=== PATIENT | male | born 1980 ===

== ENCOUNTER 2019-03-14 22:45 | Emergency (ER) | payer OTHER, SELFPAY ==
[2019-03-14 22:55] VITALS: BP 136/79; PULSE 72; RESP 14; TEMP 36.6; O2SAT 100; BMI 27.8
--- NOTE | 2019-03-14 23:01 | ED.SKABFB ---
HPI - Skin/Abscess/Foreign Bdy General Chief complaint: Skin/Abscess/Foreign Body Stated complaint: wound on the back of his right calf Time Seen by Provider: 03/14/19 22:49 Source: patient Mode of arrival: ambulatory Limitations: no limitations History of Present Illness HPI narrative: Otherwise healthy 38-year-old male here for evaluation of a potential abscess on his right lower extremity. He states that about 10 days ago he got a scrape from a de la o. He saw his primary doctor and was placed on antibiotics. This is now day 6 of Keflex. He states that the area has not improved all that much and is now actually draining a small amount of liquid. Related Data Previous Rx's Medication Instructions Recorded doxycycline hyclate 100 mg PO BID 5 Days #10 tab 03/14/19 Review of Systems Constitutional Denies fever(s) and Denies headache(s) ENT Ears, Nose, Mouth, and Throat: Denies headache(s) Musculoskeletal Comments: No ankle pain Integumentary/Breasts Comments: Redness and drainage to a smaller on his right lower extremity Neurologic Denies headache(s) Hematologic/Lymphatic Denies easy bleeding and Denies easy bruising PFSH Medical History Healthy adult (Acute) Family History (Updated 09/27/18 @ 14:59 by LESLIE Najera) Father Primary insomnia Grandfather Primary insomnia Social History Smoking Status: Never smoker Social History Smoking Status: Never smoker Exam Initial Vital Signs Initial Vital Signs: Vital Signs Temperature 97.9 F 03/14/19 22:55 Pulse Rate 72 03/14/19 22:55 Respiratory Rate 14 03/14/19 22:55 Blood Pressure 136/79 03/14/19 22:55 Pulse Oximetry 100 03/14/19 22:55 Const General: cooperative, comfortable, well developed, well groomed and No acute distress Orientation: alert and awake Skin Other: Patient with a 1 cm area of redness and swelling to the distal aspect of the lateral side of his right lower extremity. Is draining a small amount of fluid Neuro General: alert and awake Cognition: normal cognition Speech: speech normal Extrem General: normal to inspection Right upper extremity: normal to inspection Psych Appearance: grossly normal and well kempt Procedures Abscess I/D Site: lower extremity Side (if applicable): right Local Anesthetic: lidocaine 1% Amount of anesthesia used (mL): 1 Technique: incised with #11 blade Irrigation: No Packing used?: none Course Vital Signs - 8 hr 03/14/19 22:55 Temperature 97.9 F Pulse Rate 72 Respiratory Rate 14 Blood Pressure 136/79 Pulse Oximetry 100 MDM - Skin/Abscess/Foreign Bdy MDM Narrative Medical decision making narrative: Bedside ultrasound did not show any defined abscess however the area was draining a small amount of fluid. I did make a small incision with a blade in order to make sure that the wound did stay opens that I can drain. Will switch him from Keflex to doxycycline to cover for potential MRSA. Patient is nontoxic appearing. He was given return precautions and follow-up instructions. He expressed understanding and agreement with plan. Discharge Plan Departure Patient Disposition: Home Clinical Impression: Abscess of skin or subcutaneous tissue Qualifiers: Site of cutaneous abscess: extremity Site of cutaneous abscess of extremity: lower extremity Laterality: right Qualified Code(s): L02.415 - Cutaneous abscess of right lower limb Instructions: DI for Skin Abscess Activity Restrictions/Additional Instructions: Keep the bandage on for the next 12-24 hours. After that you can take it off. You can shower like normal. Would not recommend soaking your leg in anything until the infection has healed. You can cover it with a bandage. Stop taking the Keflex and start taking the antibiotic your given a prescription for this evening. Return to the emergency department for any new or worsening symptoms Prescriptions: New doxycycline hyclate 100 mg tablet 100 mg PO BID 5 Days Qty: 10 RF: 0 Referrals: Ronn Steinberg MD [Primary Care Provider] -
== END 2019-03-14 23:08 | disposition home or self-care (01) ==
PROVIDERS: Emergency Provider Emergency Medicine; PCP Family Medicine
DX: L02.415 Cutaneous abscess of right lower limb (principal)
CPT/HCPCS: 10060; 99282; 99283

== ENCOUNTER → 2019-09-30 16:40 | Outpatient (CLI) | payer OTHER, SELFPAY | PROVIDERS: PCP Family Medicine; Visit Provider Physician Assistant | DX: R05 Cough (principal) | CPT/HCPCS: 87798 ==